=== PATIENT | male | born 1980 | race American Indian/Alaskan Native ===

== ENCOUNTER 2020-10-21 08:26 | Emergency (ER) | payer SELFPAY ==
[2020-10-21 08:31] VITALS: BP 116/73
--- NOTE | 2020-10-21 08:49 | Emergency Department Report ---
ED Extremity Problem HPI - General Chief complaint: Extremity Injury, Lower Stated complaint: LEFT KNEE PAIN Time Seen by Provider: 10/21/20 08:36 Source: patient Mode of arrival: Ambulatory Limitations: No Limitations - History of Present Illness Initial comments: Is a very pleasant 40-year-old male who presents the emergency department chief complaint of left knee pain for the past many years. He reports he injured it many years ago and has been having pain since. He feels like on the medial side of his knee whenever he extends it he has to push something in for it to stop hurting. He rates severity of pain is 5-10. 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 He denies any recent injuries. Denies any associated fever, chills, night sweats, headache, dizziness, blurry vision, nausea,, diarrhea, chest pain, shortness of breath, weakness or any other associated symptoms. - Related Data Previous Rx's Medication Instructions Recorded Last Taken Type Naproxen [Naprosyn TAB] 500 mg PO BID #20 tablet 10/21/20 Unknown Rx Allergies Allergy/AdvReac Type Severity Reaction Status Date / Time No Known Allergies Allergy Unverified 10/21/20 08:28 ED Review of Systems ROS: Stated complaint: LEFT KNEE PAIN Other details as noted in HPI Comment: All other systems reviewed and negative Constitutional: denies: chills, fever Eyes: denies: eye pain, eye discharge, vision change ENT: denies: ear pain, throat pain Respiratory: denies: cough, shortness of breath, wheezing Cardiovascular: denies: chest pain, palpitations Endocrine: no symptoms reported Gastrointestinal: denies: abdominal pain, nausea, diarrhea Genitourinary: denies: urgency, dysuria Musculoskeletal: as per HPI, arthralgia. denies: back pain, joint swelling Skin: denies: rash, lesions Neurological: denies: headache, weakness, paresthesias Psychiatric: denies: anxiety, depression Hematological/Lymphatic: denies: easy bleeding, easy bruising ED Past Medical Hx - Past Medical History Previous Medical History?: No Additional medical history: LEFT KNEE - Surgical History Past Surgical History?: No - Social History Smoking Status: Current Every Day Smoker Substance Use Type: None - Medications Home Medications: Home Medications Medication Instructions Recorded Confirmed Last Taken Type Naproxen [Naprosyn TAB] 500 mg PO BID #20 tablet 10/21/20 Unknown Rx ED Physical Exam - General Limitations: No Limitations General appearance: alert, in no apparent distress - Head Head exam: Present: atraumatic, normocephalic - Eye Eye exam: Present: normal appearance, PERRL, EOMI Pupils: Present: normal accommodation - ENT ENT exam: Present: normal exam, normal orophraynx, mucous membranes moist - Neck Neck exam: Present: normal inspection, full ROM. Absent: tenderness, meningismus - Respiratory Respiratory exam: Present: normal lung sounds bilaterally. Absent: respiratory distress, wheezes, rales, rhonchi, stridor - Cardiovascular Cardiovascular Exam: Present: regular rate, normal rhythm, normal heart sounds. Absent: systolic murmur, diastolic murmur, rubs, gallop - GI/Abdominal GI/Abdominal exam: Present: soft, normal bowel sounds. Absent: distended, tenderness, guarding, rebound, rigid - Rectal Rectal exam: Present: deferred - Extremities Exam Extremities exam: Present: normal inspection, full ROM, tenderness, other (There is patellofemoral instability on the left knee. The patella displaces laterally with full extension of the knee. There is a negative varus and valgus strain, negative posterior and anterior drawer sign, no posterior calf tenderness, normal DP and PT pulses. Negative Homans' sign bilaterally). Absent: calf tenderness - Back Exam Back exam: Present: normal inspection, full ROM. Absent: tenderness, CVA tenderness (R), CVA tenderness (L) - Neurological Exam Neurological exam: Present: alert, oriented X3, normal gait - Psychiatric Psychiatric exam: Present: normal affect, normal mood - Skin Skin exam: Present: warm, dry, intact, normal color. Absent: rash ED Course Vital Signs 10/21/20 08:28 Temperature 98.5 F Pulse Rate 82 Respiratory 20 Rate Blood Pressure 116/73 O2 Sat by Pulse 98 Oximetry ED Medical Decision Making - Medical Decision Making Patient's exam is consistent with patellofemoral instability and I recommended a supportive sleeve and anti-inflammatories as needed. Patient be given outpatient orthopedic follow-up and return precautions for any change or worsening symptoms. He is low risk by Wells criteria for DVT and no posterior calf tenderness, palpable cords and a negative Homans' sign making this unlikely. He had normal DP and PT pulses making arterial insufficiency unl ikely. He had no recent trauma and is ambulating with a steady gait with a negative Scurry knee criteria making x-rays and necessary at this time. Patient was instructed to do leg strengthening exercises particular in the quadriceps muscles to help with this and follow-up with orthopedics. He verbalized understand the diagnosis, treatment plan and follow-up instructions and all of his questions were answered. - Differential Diagnosis Strain, sprain, fracture Critical care attestation.: If time is entered above; I have spent that time in minutes in the direct care of this critically ill patient, excluding procedure time. ED Disposition Clinical Impression: Patellofemoral instability of left knee with pain Disposition: MED SCREENING EXAM-LEFT Is pt being admited?: No Condition: Stable Instructions: Patellofemoral Pain Syndrome Prescriptions: Naproxen [Naprosyn TAB] 500 mg PO BID #20 tablet Referrals: PRIMARY CAREMD [Primary Care Provider] - 3-5 Days KATELYN KATE MD [Staff Physician] - 3-5 Days Forms: Work/School Release Form(ED) Time of Disposition: 08:49
== END 2020-10-21 09:04 | disposition left against medical advice (07) ==
LOC: ED 08:26
DX: M25.562 Pain in left knee (principal); Z53.21 Procedure and treatment not carried out due to patient leaving prior to being seen by health care provider